=== PATIENT | female | born 1960 | race Caucasian/White ===

== ENCOUNTER 2018-06-04 13:01 | Emergency (ER) | payer OTHER ==
[2018-06-04 13:14] VITALS: BP 152/75; PULSE 78; TEMP 98; BMI 28.3
[2018-06-04] MEDS: IBUPROFEN 400 MG TABLET (FP) PO ONE ×2 (13:30→16:17)
[2018-06-04] MEDS ORDERED: ACETAMINOPHEN 325 MG TABLET (FP) PO ONE (13:32)
[2018-06-04] MEDS ORDERED: ACETAMINOPHEN 325 MG TABLET (FP) ONE (13:32)
--- NOTE | 2018-06-04 13:35 | PDOC ---
History of Present Illness - General Chief Complaint: Pain Stated Complaint: SHOULDER PAIN Time Seen by Provider: 06/04/18 13:22 History Source: Patient Exam Limitations: No Limitations - History of Present Illness Initial Comments: 06/04/18 13:35 58 yr female tripped and fell after shoelace got stuck in a door. Pt landed on face , left arm and left knee. no LOC no nasal bleeding. Past History - Past Medical History Allergies/Adverse Reactions: Allergies Allergy/AdvReac Type Severity Reaction Status Date / Time No Known Allergies Allergy Verified 06/04/18 13:10 Home Medications: Ambulatory Orders Hydrochlorothiazide 25 mg PO ASDIR 06/19/13 Albuterol Sulfate Inhaler - [Ventolin HFA Inhaler -] 1 - 2 inh PO Q4H PRN #1 inhaler 06/11/14 Oxycodone HCl/Acetaminophen [Percocet 5-325 mg Tablet] 1 tab PO Q6H PRN #12 tab MDD 4 tabs 06/04/18 Cardiac Disorders: Yes COPD: No GI Disorders: Yes (ACID IN STOMACH) HTN: Yes Hypercholesterolemia: Yes - Immunization History Immunization Up to Date: Yes - Suicide/Smoking/Psychosocial Hx Smoking Status: No Smoking History: Never smoked Have you smoked in the past 12 months: No Number of Cigarettes Smoked Daily: 0 Information on smoking cessation initiated: No Hx Alcohol Use: No Drug/Substance Use Hx: No Substance Use Type: None *Physical Exam - Vital Signs Last Vital Signs Temp Pulse Resp BP Pulse Ox 98.0 F 78 20 152/75 100 06/04/18 13:11 06/04/18 13:11 06/04/18 13:11 06/04/18 13:11 06/04/18 13:11 - Physical Exam General Appearance: Yes: Nourished, Appropriately Dressed HEENT: positive: EOMI, RAMONA Neck: positive: Supple. negative: Tender, Tender lateral, Tender midline Respiratory/Chest: positive: Lungs Clear, Normal Breath Sounds Cardiovascular: positive: Regular Rhythm, Regular Rate Gastrointestinal/Abdominal: positive: Normal Bowel Sounds, Soft Lymphatic: negative: Adenopathy Musculoskeletal: positive: Normal Inspection Extremity: positive: Normal Capillary Refill, Normal Inspection, Tender (left shoulder, left elbow, left knee no deformity , nv intact ) Integumentary: positive: Normal Color, Dry, Warm Neurologic: positive: Fully Oriented, Alert, Normal Mood/Affect, Normal Response , Motor Strength 5/5, Finger to Nose. negative: Numbness, Sensory Deficit Procedures - Splinting Splint Location: Left: Elbow Pre-Proc Neuro Vasc Exam: normal Hand-Made Type: orthoglass Splint Type: Yes: Posterior (left elbow) Post-Proc Neuro Vasc Exam: normal ED Treatment Course - RADIOLOGY Radiology Studies Ordered: Category Date Time Status ELBOW-LEFT [RAD] Stat Radiology 06/04/18 13:27 Ordered SHOULDER-LEFT [RAD] Stat Radiology 06/04/18 13:27 Ordered - Consult/PCP Time Called: 15:04 (called ortho construction stonemason ) Case discussed with consulting physician: Quinton Dahl I Consult Reason/Comments: case discussed with ortho, follow in office tomorrow Medical Decision Making - Medical Decision Making 06/04/18 13:36 cc: mechanical fall, injured left shoulder, left arm , left knee. bruising to the nares. will give tylenol now xrays facial bone CT 06/04/18 15:49 ct is negative posterior elbow splint placed percocet for pain 06/04/18 16:26 discussed the plan with daughter and the patient who understand the plan of care. pt is stable for discharge. 06/04/18 16:29 *DC/Admit/Observation/Transfer Diagnosis at time of Disposition: Elbow fracture, left Qualifiers: Encounter type: initial encounter Fracture type: closed Qualified Code(s): S42.402A - Unspecified fracture of lower end of left humerus, initial encounter for closed fracture - Discharge Dispostion Disposition: HOME Condition at time of disposition: Good - Prescriptions Prescriptions: Oxycodone HCl/Acetaminophen [Percocet 5-325 mg Tablet] 1 tab PO Q6H PRN #12 tab MDD 4 tabs PRN Reason: Severe Pain - Referrals Referrals: Donny Du MD [Primary Care Provider] - Eliot Mendoza MD [Staff Physician] - - Patient Instructions Additional Instructions: call to see him tomorrow , case discussed with today in the ER who said for her to come in tomorrow. take percocet for severe pain take with food do not remove the splint,do not get wet , remove the sling to sleep and bathe apply ice to the face every 2hrs for 15 minutes apply ice to the elbow over the splint every 2hrs for 20 minutes while awake - Post Discharge Activity
== END 2018-06-04 16:34 | disposition home or self-care (01) ==
LOC: JERFT 13:01
PROC: 2W39X1Z Immobilization of Left Upper Extremity using Splint (ICD-10-PCS; principal; 2018-06-04)
DX: S42.402A Unspecified fracture of lower end of left humerus, initial encounter for closed fracture (principal); W01.0XXA Fall on same level from slipping, tripping and stumbling without subsequent striking against object, initial encounter; Y93.89 Activity, other specified; Y92.038 Other place in apartment as the place of occurrence of the external cause; Y99.8 Other external cause status
CPT/HCPCS: 70486-TC; 73030-TC-LT-FY; 73070-TC-LT-FY; 73562-TC-LT-FY; 99281-25

== ENCOUNTER 2018-06-17 06:06 | Day surgery (SDC) | payer OTHER ==
[2018-06-16 11:15] VITALS: BMI 26.8
[2018-06-17] MEDS ORDERED: DESFLURANE GAS 240 ML BOTTLE IH ONE (07:30)
[2018-06-17] MEDS ORDERED: BUPIVACAINE 0.25% /EPI 1:200,000 10 ML VIAL NR ONE (08:34)
--- NOTE | 2018-06-17 11:36 | OP ---
Operative Note - Note: Operative Date: 06/17/18 Pre-Operative Diagnosis: left olecranon fx. left rad head fx Operation: left olecranon ORIF / radial head replacement Implants: acumed olecranon plate w 3.5 and 2.7mm screws. acumed rad head repl 24mm with 9mm stem and +2 neck Surgeon: Eliot Mendoza Staffing Assistant: Quinton Dahl I Anesthesiologist/TAX SENIOR ASSOCIATE: William Castañeda Anesthesia: General Estimated Blood Loss (mls): 30 Operative Report Dictated: Yes
[2018-06-17] MEDS ORDERED: ONDANSETRON 4 MG/2 ML VIAL IVPUSH PRN (11:47)
[2018-06-17] MEDS ORDERED: PROMETHAZINE HCL 25 MG/1 ML VIAL IVPUSH PRN (11:47)
[2018-06-17] MEDS ORDERED: oxyCODONE HCL 5 MG TABLET PO PRN ×2 (11:47)
[2018-06-17 12:43] VITALS: TEMP 98.9
[2018-06-17] MEDS ORDERED: oxyCODONE HCL 5 MG TABLET ONE (12:45)
--- NOTE | 2018-06-17 12:54 | OP ---
DATE OF OPERATION: 06/17/2018 PREOPERATIVE DIAGNOSES: Left elbow olecranon and radial head fractures. POSTOPERATIVE DIAGNOSES: Left elbow olecranon and radial head fractures plus capitellum shear fracture. PROCEDURE: Left elbow open reduction and internal fixation of olecranon with radial head replacement. SURGEON: Eliot Mendoza MD SEMICONDUCTOR PROCESSING GROUP LEADER: Quinton Dahl MD, whose skillful assistance was necessary for the safe and timely performance of this procedure. Dr. Dahl was able to help provide limb positioning, retraction, assist in fracture reduction as well as insertion of orthopedic hardware as well as assist in the placement of the radial head. IMPLANTS: Acumed olecranon plate with associated 2.7 and 3.5 Osteon nonlocking screws, one 2.7 mm, one 3.5 mm lag screw which were out of the plate. There is an Acumed radial head implant, 9-mm diameter stem with 2-mm offset and 24-mm head. TOURNIQUET TIME: Total was 2 hours. POSTOPERATIVE CONDITION: Stable. COMPLICATIONS: None. INDICATIONS: This is a pleasant 58-year-old female who suffered a left elbow injury after a fall. Radiographs demonstrated fractures as well as CT scan including the displaced and angulated portion of the olecranon and a highly comminuted fracture of the radial head and neck. Treatment options including nonoperative versus operative management were reviewed. Operative management was recommended as this type of injury would result in severe loss of elbow function should it not be properly aligned. We reviewed that operative care would not guarantee normal range of motion of the elbow and oftentimes full range of motion is not obtained. However, this would offer her the best function possible. I reviewed surgical risks in detail including bleeding, infection, neurovascular injury, need for further surgery (including possible removal of hardware), postoperative pain and stiffness, nonunion, malunion, hardware failure or cutout. We reviewed medical risks such as heart attack, stroke, DVT, PE and . I addressed that there was a significant recovery which requires significant physical therapy. I addressed all the patient's questions and concerns. She voiced understanding and elected to proceed. It should be noted that the patient's family was translating for her. While a edger operator phone was available and offered to the patient, she preferred to use her family. PROCEDURE: The patient was brought to the operating room where general anesthesia was administered. She was placed into the lateral decubitus position, careful to pad all the bony prominences. The left upper extremity was then prepped and draped in the usual sterile fashion. A preoperative dose of antibiotics was given and the usual timeout procedure was performed. Incision was then marked out. This was made just lateral to the subcutaneous border of the olecranon and ulna. This was then carried out through skin and through subcutaneous tissue. Hemostasis was maintained using electrocautery. Given the bony bleeding, though, it was decided to use a tourniquet. The limb was now exsanguinated and the tourniquet was inflated to 250 mmHg. The dissection was now carried using an elevator to free up the subcutaneous border of the ulna. The fracture site was identified. The fracture site was debrided of any loose debris. The fracture was now reduced and held in place with fracture reduction forceps. The fracture was now fixed in place utilizing one 3.5 and one 2.7 lag screw. The fracture was now stable. The neutralization plate was then chosen and affixed to the bone. It was fixed proximally using a K-wire first. A 3.5 shaft screw was then used to bring the plate down to the bone securely. The proximal three 2.7 screws were then inserted, 1 nonlocking to bring the plate down proximally and then 2 locking to further secure it. Two nonlocking and 1 locking screws were then inserted into the more distal segment. At this point, the entire construct was examined both visually and fluoroscopically. Both fracture reduction and hardware placement were satisfactory. The wound was copiously irrigated. The fascia was now closed using 0 Vicryl and while the closure was done the tourniquet was let down and hemostasis was maintained. Following the closure of this, the limb was then re-exsanguinated and the tourniquet was inflated to 250 mmHg. Utilizing a full-thickness skin flap, the tissue was elevated laterally to expose the anconeus and ECRB to open the Donny interval. A 10 blade was then used to open this interval extending down through the capsule. The capsule was elevated both anteriorly and posteriorly to expose the radial head and the joint. Initially visualized was a highly comminuted radial head fracture. The radial head fragment was sitting at an awkward angle to the joint. Given the proximal nature of this fracture, it was felt that it was not amenable to fixation. The comminution also was a factor here. A decision was made to perform a head replacement. The fracture fragments were now removed and these were already excised before. Removing the fracture fragments demonstrated there was a significant impacted capitellar osteochondral fracture. It was stable upon probing. Therefore, no further intervention was felt to be necessary. The surface impacted approximately 2 mm. The canal finder was then passed down the radial shaft. The hand reamers were then passed down until a size 9 was found to have good fit. A planer was then passed in to smooth the near surface. The sizer was passed in and a 2-mm neck was chosen. The sizer was removed. A trial was loaded in and the elbow was passed through a range of motion. The elbow seemed to be stable with good motion and no overtightening. The trial components were now removed. The final components were then pressed into place. The wound was now irrigated. The annular ligament and capsule were repaired using 0 Vicryl. The overlying fascia was repaired using 0 Vicryl. The subcutaneous tissue was approximated using 3-0 Vicryl. The skin was closed using 4-0 nylon. Sterile dressings were placed. The patient was placed into a splint in 90 degrees of flexion. A final radiograph confirmed that the joint was well reduced and congruent. Patient was extubated and transferred to the recovery room in stable condition. It should be noted that the tourniquet was deflated at the end of the procedure after 2 hours' total tourniquet time. Elvira FRAGOSO/[id number] MTDD
[2018-06-17 15:12] VITALS: BP 127/75; PULSE 102
== END 2018-06-17 14:45 | disposition home or self-care (01) ==
LOC: FASU 06:06
PROVIDERS: ATTEND Orthopaedic Surgery Sports Medicine
PROC: 0RRM0JZ Replacement of Left Elbow Joint with Synthetic Substitute, Open Approach (ICD-10-PCS; 2018-06-17)
PROC: 0PSL04Z Reposition Left Ulna with Internal Fixation Device, Open Approach (ICD-10-PCS; principal; 2018-06-17 07:30)
DX: S52.032A Displaced fracture of olecranon process with intraarticular extension of left ulna, initial encounter for closed fracture (principal); S52.122A Displaced fracture of head of left radius, initial encounter for closed fracture; S42.452A Displaced fracture of lateral condyle of left humerus, initial encounter for closed fracture; W19.XXXA Unspecified fall, initial encounter; Y93.9 Activity, unspecified; Y92.9 Unspecified place or not applicable
CPT/HCPCS: 24366; 24685; C1713; 73070-TC-LT-FY; 94760